=== PATIENT | female | born 1940 | race Caucasian/White ===

== ENCOUNTER 2016-09-26 07:10 | Inpatient (IN) | payer MEDICARE, OTHER ==
--- NOTE | ~2016-09-26 | OP ---
Record Of Operation [facility] [address] [place]. [address] NAME: JESICA GANDARA : 38 STATUS : ADM IN [facility]#: [id number] AGE: 75 ADM/REG DATE : 09/26/16 MR#: [id number] REPORT SERV DATE: 09/27/16 DICTATED BY: AVTAR BUTTERFIELD DATE: 09/26/16 REPORT STATUS : Draft TRANSCRIBED BY: MODL DATE: 09/26/16 DATE OF PROCEDURE: 09/26/2016 OPERATIVE SURGEON: Avtar Butterfield M.D. OPERATIVE FAX MACHINE REPAIRER: NAVNEET Sanabria COMPLICATIONS: None. ESTIMATED BLOOD LOSS: Less than 100 mL. DISPOSITION: Stable to recovery room. ANESTHESIA: General with interscalene block augmentation for postoperative pain control. PREOPERATIVE DIAGNOSES: 1. Left shoulder pain. 2. Rotator cuff arthropathy, status post failed arthroscopic rotator cuff repair. 3. Retained hardware/suture anchors x2. POSTOPERATIVE DIAGNOSES: 1. Left shoulder pain. 2. Rotator cuff arthropathy, status post failed arthroscopic rotator cuff repair. 3. Retained hardware/suture anchors x2. OPERATIVE PROCEDURE: 1. Left shoulder examination under anesthesia. 2. Left reverse total shoulder arthroplasty using Tornier Aequalis reverse total shoulder system. 3. Coalgate hardware removal x2. 4. Humeral head autograft impaction technique. IMPLANTS USED: One glenoid base plate, one 36 mm glenoid sphere with a 10 degree inferior tilt, one 36 mm metaphyseal component. One 9 x 100 mm humeral stem, one 36 x 6 mm polyethylene insert, and one cement restrictor, as well as four screws, two nonlocking and two locking of the appropriate size. PROCEDURE: The diagnoses listed above as well as the recommended surgical procedure, risks, and benefits thereof were discussed in full detail with Jesica Gandara and family on the morning of 09/26/2016. The patient and family asked appropriate questions which were answered to their satisfaction. Ms. Gandara is a 75-year-old female well known to my orthopedic practice. We had performed a previous arthroscopic rotator cuff repair of a very large rotator cuff tear on her right shoulder in the more distant past which she had recovered nicely from and healed up quite well. She then went on to have increasing symptoms in her left shoulder which MRI demonstrated also had a very large to massive rotator cuff tear. We talked about various options, and at that time, she decided to Record Of Operation [facility] [address] [place]. [address] NAME: JESICA GANDARA : 38 STATUS : ADM IN PAT#: [id number] AGE: 75 ADM/REG DATE : 09/26/16 MR#: [id number] REPORT SERV DATE: 09/27/16 DICTATED BY: AVTAR BUTTERFIELD DATE: 09/26/16 REPORT STATUS : Draft TRANSCRIBED BY: NEPTALI DATE: 09/26/16 proceed with attempted arthroscopic repair rather than replacing the shoulder. She is happy with the success that she had achieved on her contralateral shoulder. We attempted the arthroscopic rotator cuff repair. Initially, she did well; however, after a short period of time, she started to have increasing pain and decreasing range of motion with physical therapy. We repeated a MRI scan that did show evidence for recurrent tearing or lack of healing of the rotator cuff back down the greater tuberosity. It appeared that the biological activity of the rotator cuff tendon was simply not viable and the rotator cuff repair had failed. We knew this was a risk at the time of the surgery, but she had chosen to move forward with the attempted repair rather than replacement. Subsequent to the failed rotator cuff repair, the patient had increasing symptoms and decided to entertain the reverse total shoulder arthroplasty as her next option. A lengthy discussion was held regarding risks, benefits, and alternatives of care once again in full detail. Understanding these details, the patient has freely requested to proceed with reverse total shoulder arthroplasty due to her inability to live with current symptoms as is. She has freely elected to proceed with surgical intervention. Informed consent was signed, witnessed and placed in the chart. The appropriate upper extremity was marked for confirmation and an interscalene block was placed by the anesthesia team with good success. The patient was then wheeled to the operative arena were general endotracheal anesthesia was administered. The patient was placed in the beachchair position with all nonoperative extremities well padded and secured for the duration of the case. The patient received 1 gram of Ancef for perioperative antibiosis. The appropriate operative upper extremity was prepped and draped in a typical orthopedic sterile fashion. A surgical pause was performed confirming both the correct patient as well as proper surgical site and procedure. All present were in agreement. All standard anatomic landmarks as well as the superolateral incision site were demarcated using a sterile marking pen. 15 cc of 0.5% Marcaine with epinephrine was injected into the subcuticular layers along the operative incision site. A 10 blade was then used to make an 8 cm incision in the coronal plane off the lateral border of the acromion. Soft tissues were dissected down sharply to expose the deltotrapezius fascia. Full thickness cutaneous flaps were reflected anteriorly and posteriorly. The acromioclavicular joint was identified and electrocautery was used to skeletonize the distal end of the clavicle. A skid was used to protect those structures inferiorly and an oscillating saw was used to remove the distal most 1 cm of clavicle. All additional osteophytes and sharp bone prominences were removed using a rongeur. A raphe was identified in the anterolateral deltoid and then divided 4 cm distal to the lateral border of the acromion. A marking suture was placed in the distal most extent of the split in the deltoid to avoid further dissection and injury to the axillary nerve or those vessels traveling with it. A full deltoid flap was reflected anteriorly. The remnants of the rotator cuff were identified deep to the deltoid. The patient had a large rotator cuff tear with attritional rupture. There was fatty infiltrate throughout the remaining rotator cuff tissue confirming its dysfunction. At this juncture, the rotator cuff tear was extended and the remnants of the infraspinatus were reflected posteriorly. The biceps tendon was located Record Of Operation [address] [address] NAME: JESICA GANDARA : 36 STATUS : ADM IN [facility]#: [id number] AGE: 75 ADM/REG DATE : 09/26/16 MR#: [id number] REPORT SERV DATE: 09/27/16 DICTATED BY: AVTAR BUTTERFIELD DATE: 09/26/16 REPORT STATUS : Draft TRANSCRIBED BY: MODL DATE: 09/26/16 and found to be highly frayed. A bicipital tenolysis was performed. Next, the humeral head was fully exposed. 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 A monoblock cutting guide was placed through the hinge point and down the shaft of the proximal humerus. An oscillating saw was used to make a proximal humeral cut. The humeral head was removed and placed on the back table. Cancellous bone was harvested from within to provide for later autograft impaction technique. Both previously placed metallic anchor tips were identified and removed entirely from the proximal humerus. Next, the playboy retractor was placed under the inferior margin of the glenoid and the humerus was retracted posteriorly and inferiorly out of the way of the glenoid. The bicipital labral complex and all residual labrum was excised using electrocautery. The center point of the glenoid was identified using the anterior inferior referencing guide and a central drill hole was created. A 36 mm reamer was used to ream the glenoid down to a nice healthy bleeding bony surface. Great care was taken to angle the reamer approximately 10 degrees inferiorly and to cheat the central peg hole inferiorly in relation to the overall glenoid. The glenoid was reamed appropriately. At this juncture, the central peg hole was drilled again increasing the size up to 8 mm. The glenoid base plate was then opened and assembled on the back table with its insertion device. The cancellous autograft was impacted into the PEG hole. The glenoid base plate was then placed in its PEG hole and impacted appropriately. An excellent scratch fit was obtained. All four holes were drilled and filled with the appropriately sized holes. Both of these screws obtained excellent bicortical purchase into the base of the corticoid superiorly and down the scapular pillar inferiorly. The base plate was then tested and found to be very secure. A 36 mm glenosphere was then opened and inserted into its Jerome taper. It was impacted down and the Jerome taper was set. The central set screw was then tightened down for secondary security. Next, we returned to the final preparation of the humerus. The diaphyseal reamers were used in increasing sizes until cortical chatter was obtained. The 36 mm hand metaphyseal reamer was then used next followed by the marissa umanar to core out the proximal metaphysis. At this juncture the humeral stem with a 36 mm metaphysis was trialed and found to fit appropriately. These were then opened and assembled on the back table with their insertion devices. A cement restrictor was placed 2 canal diameters distal to the distal most extent of the prosthesis. Pulsatile lavage was used to irrigate the shaft of the humerus. An end tip suction catheter was placed down the shaft of the humerus. Third generation cementation techniques were employed with the cement being mixed under vacuum pressure. Vancomycin was placed in the cement. Next, the cement was placed down the shaft of the humerus and the suction tip catheter was removed. The prosthesis was then placed down the shaft of the humerus with the appropriate retroversion measured with retroversion guide parallel to the forearm. Next, the cement was allowed to harden. The polyethylene liner was tested and the appropriate size was selected. This was opened and impacted into place for a nice snap fit. The glenohumeral joint was then reduced and found to have excellent tension as well as Record Of Operation [facility] [address] [place]. [address] NAME: JESICA GANDARA : 36 STATUS : ADM IN PAT#: [id number] AGE: 75 ADM/REG DATE : 09/26/16 MR#: [id number] REPORT SERV DATE: 09/27/16 DICTATED BY: AVTAR BUTTERFIELD DATE: 09/26/16 REPORT STATUS : Draft TRANSCRIBED BY: MODL DATE: 09/26/16 appropriate range of motion and excellent stability. The deep layers were then irrigated with copious amount of pulsatile lavage. The remnants of the rotator cuff were then closed for maximal available coverage of the prosthesis. They were closed with #2 Fiberwire through the actual prosthesis. This gave us a great tie-down point laterally. Next, the deltoid was closed through bone holes on the anterior and lateral borders of the acromion. An excellent closure of the deltoid was obtained. Finally, this layer again was washed with copious amounts of pulsatile lavage and the subcutaneous layers were closed with 2-0 undyed Vicryl. The subcuticular layers were closed in a running Monocryl stitch in the cutaneous layer. Steri-Strips were placed on the skin. Sterile dressing was secured with Metapore tape and the patient was placed in an ultra sling for temporary immobilization. An ice pack was provided. The patient was then awakened from anesthesia without difficult. She was transferred to post-anesthesia care unit in stable condition where her postoperative examination was within normal limits understanding that the interscalene block was still in effect. A lengthy discussion was held with the patient and family detailing all operative findings as well as procedures performed with all questions answered to their satisfaction. CCS/MODL Avtar Butterfield M.D. / [id number] CC: Avtar Butterfield M.D.
[~2016-09-26 07:10] MED LIST: ATEN25 PO; CALCIUM PO; DIOV160 PO; DOLOPHINE10 MG PO; ENDOCET1 TA3; FISH OIL300 MG PO; ICAPS AREDS SO1 EACH PO; LORTAB10 PO; METHOC500B PO; NEUR300 PO; PRENATAL1 TAB PO; PRIN10 PO; RYTHMOL150 MG PO; VITAMIN B PO; ZANAFLEX2 MG PO; ZINC PO
[2016-09-27 05:46] LABS: HEMATOCRIT 33.6 % (36.0-48.0)
[2016-09-27 05:54] LABS: CALCIUM, SERUM 8.3 MG/DL (8.5-10.4); CHLORIDE, SERUM 110 MMOL/L (96-112); CO2 (CARBON DIOXIDE) 25 MMOL/L (24-34); CREATININE 1.29 MG/DL (0.55-1.02); GFR AFRICAN AMERICAN 46 ML/MIN (>=60); GFR NON AFRICAN AMERICAN 40 ML/MIN (>=60); POTASSIUM, SERUM 4.4 MMOL/L (3.5-5.3); SODIUM, SERUM 144 MMOL/L (135-148)
[2016-09-27 05:57] LABS: BUN (BLOOD UREA NITROGEN) 22 MG/DL (6-23); GLUCOSE, SERUM 111 MG/DL (60-99)
[2016-09-27] MEDS ORDERED: ASAEC PO (09:52)
[2016-09-27] MEDS ORDERED: OXYCON10 PO (09:53)
[2016-09-27] MEDS ORDERED: ZOFRAN4 PO (09:54)
[2016-09-27] MEDS ORDERED: DSS PO (09:54)
== END 2016-09-27 14:24 | disposition home or self-care (01) | DRG 483 ==
LOC: SDC/OF 07:10 → 1SO 15:09
PROVIDERS: Specialist
PROC: 3E0T3CZ (ICD-10-PCS; 2016-09-26)
PROC: 0RRK00Z Replacement of Left Shoulder Joint with Reverse Ball and Socket Synthetic Substitute, Open Approach (ICD-10-PCS; principal; 2016-09-26 09:30)
PROC: 0RPK04Z Removal of Internal Fixation Device from Left Shoulder Joint, Open Approach (ICD-10-PCS; 2016-09-26 09:30)
DX: M19.012 Primary osteoarthritis, left shoulder (principal); R13.10 Dysphagia, unspecified; I10 Essential (primary) hypertension; M75.122 Complete rotator cuff tear or rupture of left shoulder, not specified as traumatic; F41.8 Other specified anxiety disorders; K21.9 Gastro-esophageal reflux disease without esophagitis; Z79.891 Long term (current) use of opiate analgesic; Z79.899 Other long term (current) drug therapy
CPT/HCPCS: 36415; 73030-LT; 80048; 81001; 84132; 85014; 85018; 85025; 85610; 86850; 86900; 86901; 87641; 88300; 88304; 88311; 93005; 97161-GP; A9270-GY; C1713; C1776; J0690; J2250; J2370; J2710; J2795; J3010